=== PATIENT | male | born 1995 | race Caucasian/White ===

== ENCOUNTER 2023-05-28 18:12 | Emergency (ER) | payer SELFPAY ==
[~2023-05-28] VITALS: Ht 177.8 cm; Wt 73.0 kg
[2023-05-28 18:15] VITALS: BP 140/76; PULSE 105; RESP 16; TEMP 98; O2SAT 99
[2023-05-28] MEDS ORDERED: EPIN0.3P3 IM (18:58)
[2023-05-28] MEDS ORDERED: B50 MT (18:58)
[2023-05-28] MEDS ORDERED: FAMOTIDINE 20MG TABLET PO ONE (19:00)
[2023-05-28] MEDS ORDERED: DEXAMETHASONE 1 MG/ML ORAL SYR PO ONE (19:00)
[2023-05-28] MEDS ORDERED: DEXAMETHASONE 4MG TABLET PO NR (19:15)
[2023-05-28] MEDS ORDERED: DEXAMETHASONE 6MG TABLET PO NR (19:15)
== END 2023-05-28 19:30 | disposition home or self-care (01) ==
LOC: ER 18:12
DX: T78.2XXA Anaphylactic shock, unspecified, initial encounter (principal); F12.10 Cannabis abuse, uncomplicated; Z53.29 Procedure and treatment not carried out because of patient's decision for other reasons
CPT/HCPCS: 99283; J8540